=== PATIENT | female | born 1965 | race Caucasian/White ===

== ENCOUNTER 2017-05-15 23:31 | Emergency (ER) | payer MEDICAID ==
[2017-05-16] MEDS ORDERED: Bacitracin pkt 1 gm Pkt TP ONE (01:58)
--- NOTE | 2017-05-16 02:17 | ED Physician Chart ---
ED Chief Complaint/HPI - Patient Information Date Seen:: 05/16/17 Time Seen:: 02:08 Chief Complaint:: Right index finger growth History of Present Illness:: 51 yo female had a rather fast growth on the right index finger for 3 weeks. There was bleeding on the surface of the growth 2 weeks ago. The patient came to our ER and silver nitrate was used to stop the bleeding. Ever since then, the nodule had grown bigger and more painful. There was new bleeding on the surface of the nodule today. Allergies:: Allergies Allergy/AdvReac Type Severity Reaction Status Date / Time No Known Allergies Allergy Verified 04/25/17 19:15 Vitals:: Vital Signs - 8 hr 05/15/17 23:45 Temp 98.4 F HR 74 RR 18 BP 156/102 O2 Sat % 99 ED Review of Systems - Review of Systems General/Constitutional: No fever Skin: Skin lesions Head: No headache Eyes: No pain ENT: No nasal drainage Neck: No neck pain Cardio Vascular: No chest pain Pulmonary: No SOB GI: No nausea Musculoskeletal: No bone or joint pain ED Past Medical History - Past Medical History Past Medical History: No significant medical hx Social History: Non Smoker, No Alcohol, No Drug Use Surgical History: None Family Medical History - Family Member Mother History Unknown: Yes ED Physical Exam - Physical Examination General/Constitutional: Awake Head: Atraumatic Eyes: PERRL ENMT: Nasal exam nl Neck: No nuchal rigidity Respiratory: Clear to Auscultation Cardio Vascular: RRR, No murmur, gallop, rubs, NL S1 S2 GI: No tenderness/rebounding/guarding Other Extremities comments:: Right index ulcerated cutaneous nodule about 1cm in diameter on the dorsal surface between PIP and DIP joints, with tenderness and bleeding Neuro/Psych: No focal deficits ED Assessment - Assessment General Assessment: Right index finger nodule Assessment/Comments:: Removal of nodule Keflex D/c home F/u PCP or return to ER for suture removal. - Procedures Procedures:: Removal of the right index finger nodule 1cm. After NS, hydrogen peroxide, and betadine clean of the entire right index finger, locale anesthesia was achieved with 1% lidocaine at the MP joint area. The nodule was identified and from the finger at the root of the nodule. Subsequently, one horizontal mattress suture and one simple interupted suture were made with 4.0 prolene suture. Good hemostasis was achieved. The patient tolerated the procedure well. The specimen was sent for pathology exam. Informed Consent: Procedure/risk/benefits explained by MD: Yes ED Septic Shock - . Is Septic Shock (SBP<90, OR Lactate>4 mmol\L) present?: No - <6hrs of presentation: Vital Signs: Vital Signs - 8 hr 05/15/17 23:45 Temp 98.4 F HR 74 RR 18 BP 156/102 O2 Sat % 99 ED Reassessment (Disposition) - Reassessment Reassessment Condition:: Improved - Patient Disposition Discharge/Transfer:: Home ED Discharge Plan - Patient Disposition Admit/Discharge/Transfer: PT DISCHARGED HOME Condition at Disposition: Stable Prescriptions: Cephalexin [Keflex] 500 mg PO TID #15 cap Instructions: Excision of Skin Lesions Additional Instructions: FOLLOW UP WITH YOUR DOCTOR IN 2-3 DAYS FOR WOUND CHECK AND TO COME BACK TO ER IF SYMPTOMS WORSEN. REMOVAL OF SUTURES NEXT SATURDAY
[2017-05-16] MEDS ORDERED: Bacitracin pkt 1 gm Pkt TP STA (03:56)
--- NOTE | 2017-05-17 13:07 | Pathology Report ---
[id number] Collection date: 05/16/2017 Surgeon: Dr. Bright Hodges Specimen Description: Right index finger growth Gross Description: Received in formalin is a 0.7 x 0.6 x 0.3 cm polypoid portion of cooper soft tissue with a 0.3 cm base that is inked blue as the margin. The specimen is sectioned and totally submitted in one cassette. Microscopic Description: The histologic sections show partially ulcerated skin with acute and chronic inflammation consisting of lymphocytes admixed with plasma cells and neutrophils. There is fibrovascular proliferation seen in association with the areas of ulceration, consistent with granulation tissue reaction. One area of increased vascularity and hemorrhage is identified at the edge of the specimen. There is no evidence for atypia, and only rare mitotic figures are appreciated. Diagnosis: Ulcerated cutaneous polyp showing acute and chronic inflammation and granulation tissue reaction, right index finger. Comment: This histologic findings most likely represent an inflammatory reaction, however the possibility of a hemangioma cannot be excluded. [facility]# [id number] [facility] CENTERJack
== END 2017-05-16 03:00 | disposition home or self-care (01) ==
LOC: ER 23:31
DX: L92.8 Other granulomatous disorders of the skin and subcutaneous tissue (principal); L08.89 Other specified local infections of the skin and subcutaneous tissue
CPT/HCPCS: 11421; J2001; Z7502; Z7610

== ENCOUNTER 2017-05-24 21:14 | Emergency (ER) | payer MEDICAID ==
--- NOTE | 2017-05-24 21:27 | ED Physician Chart ---
ED Chief Complaint/HPI - Patient Information Date Seen:: 05/24/17 Time Seen:: 21:15 Chief Complaint:: need suture removal 1 week in Allergies:: Allergies Allergy/AdvReac Type Severity Reaction Status Date / Time No Known Allergies Allergy Verified 04/25/17 19:15 ED Review of Systems - Review of Systems General/Constitutional: No fever ED Past Medical History - Past Medical History Past Medical History: No significant medical hx Family Medical History - Family Member Mother History Unknown: Yes ED Physical Exam - Physical Examination General/Constitutional: Non-toxic appearing Head: Atraumatic Eyes: Lids, conjuctiva normal Other Skin comments:: right index finger [address] ENMT: External ears, nose nl Neck: Nontender Respiratory: Nl effort/Exclusion Cardio Vascular: RRR GI: No tenderness/rebounding/guarding : No CVA tenderness Extremities: No tenderness or effusion Neuro/Psych: Alert/oriented Misc: Normal back ED Assessment - Assessment General Assessment: suture removal ED Septic Shock - . Is Septic Shock (SBP<90, OR Lactate>4 mmol\L) present?: No ED Reassessment (Disposition) - Reassessment Reassessment Condition:: Improved (soak hand )
[2017-05-24] MEDS ORDERED: Silver Nitrate 1 Swab TP ONE (21:49)
[2017-05-24] MEDS ORDERED: Triple Antibiotic 0.94 gm Pkt TP ONE (22:11)
[2017-05-24] MEDS ORDERED: Triple Antibiotic 0.94 gm Pkt TP STA (22:12)
[2017-05-24] MEDS ORDERED: Silver Nitrate 1 Swab TP STA (22:13)
== END 2017-05-24 22:25 | disposition home or self-care (01) ==
LOC: ER 21:14
DX: Z48.00 Encounter for change or removal of nonsurgical wound dressing (principal)
CPT/HCPCS: 99283; 96372; J1885; A4217; Z7502